=== PATIENT | male | born 1995 ===

== ENCOUNTER 2017-09-09 21:19 | Emergency (ER) | payer SELFPAY ==
--- NOTE | 2017-09-09 22:55 | ED PDOC ---
Arrival/HPI - General Chief Complaint: Medical Clearance Time Seen by Provider: 09/09/17 22:09 Historian: Patient - History of Present Illness Narrative History of Present Illness (Text): 09/09/17 22:52 22 yo M presents to the ER for concern for herpes exposure. Patient states that his girlfriend was recently diagnosed with herpes infection 1 week ago and he is concerned that he may have it. Otherwise patient denies any fever, chills, dysuria, urethral discharge, rash or genital lesions. Past Medical History - Provider Review Nursing Documentation Reviewed: Yes - Psychiatric Hx Substance Use: No Family/Social History - Physician Review Nursing Documentation Reviewed: Yes Family/Social History: Unknown Family HX Smoking Status: y Hx Alcohol Use: No Hx Substance Use: No Review of Systems - Review of Systems Constitutional: absent: Fatigue, Weight Change, Fevers Respiratory: absent: SOB, Cough, Sputum Cardiovascular: absent: Chest Pain, Palpitations, Edema Gastrointestinal: absent: Abdominal Pain, Diarrhea, Vomiting Genitourinary Male: absent: Dysuria, Frequency, Hematuria Musculoskeletal: Arthralgias (2 yr h/o intermittent L knee pain, no pain today) , Back Pain (chronic intermittent low back pain, no pain today). absent: Neck Pain, Joint Swelling Skin: absent: Rash, Pruritis, Skin Lesions Physical Exam Vital Signs Reviewed: Yes Temperature: Afebrile Blood Pressure: Normal Pulse: Regular Respiratory Rate: Normal Appearance: Positive for: Well-Appearing, Non-Toxic, Comfortable Pain Distress: None Mental Status: Positive for: Alert and Oriented X 3 - Systems Exam Head: Present: Atraumatic, Normocephalic Mouth: Present: Moist Mucous Membranes Neck: Present: Normal Range of Motion Respiratory/Chest: Present: Clear to Auscultation, Good Air Exchange. No: Wheezes, Rhonchi Cardiovascular: Present: Regular Rate and Rhythm, Normal S1, S2. No: Murmurs Abdomen: No: Tenderness, Distention, Guarding Back: Present: Normal Inspection. No: CVA Tenderness, Midline Tenderness, Paraspinal Tenderness Upper Extremity: Present: Normal Inspection, Normal ROM Lower Extremity: Present: Normal Inspection, Normal ROM Neurological: Present: GCS=15, CN II-XII Intact, Speech Normal, Motor Func Grossly Intact, Normal Sensory Function Skin: Present: Warm, Dry, Normal Color. No: Rashes Psychiatric: Present: Alert, Oriented x 3 Medical Decision Making ED Course and Treatment: 09/09/17 22:55 22 yo M presents to the ER for concern for herpes exposure. Patient states that his girlfriend was recently diagnosed with herpes infection 1 week ago and he is concerned that he may have it. Patient advised that he should follow-up with the clinic for further testing and evaluation, advised that no further testing could be done today as he is asymptomatic. - PA / CHIEF PHYSICAL THERAPIST / Resident Statement MD/DO has reviewed & agrees with the documentation as recorded. Disposition/Present on Arrival - Present on Arrival Any Indicators Present on Arrival: No History of DVT/PE: No History of Uncontrolled Diabetes: No Urinary Catheter: No History of Decub. Ulcer: No History Surgical Site Infection Following: None - Disposition Have Diagnosis and Disposition been Completed?: Yes Diagnosis: Concern about sexually transmitted disease in male without diagnosis, Back pain , Knee pain, left Disposition: HOME/ ROUTINE Disposition Time: 22:10 Patient Plan: Discharge Patient Problems: Current Active Problems Problem Status Onset Concern about sexually transmitted disease in male without diagnosis Acute Back pain Acute Knee pain, left Acute Condition: STABLE Discharge Instructions (ExitCare): Sexually Transmitted Diseases (ED), Knee Pain (ED), Back Pain (ED) Print Language: KHMER Referrals: [facility] [place] [Outside] - Follow up with primary Forms: [employer] (Kyrgyz)
== END 2017-09-09 22:32 | disposition home or self-care (01) ==
LOC: ED 21:19
DX: Z71.1 Person with feared health complaint in whom no diagnosis is made (principal); M25.562 Pain in left knee; M54.9 Dorsalgia, unspecified